=== PATIENT | female | born 1970 | race Two or more races ===

== ENCOUNTER 2023-07-12 12:46 | Outpatient (CLI) | payer BC ==
[2023-07-14 21:06] LABS: chla t Negative (Negative); neiss Negative (Negative)
== END 2023-07-12 13:00 | disposition home or self-care (01) ==
LOC: LAB 12:46
PROVIDERS: ATTEND General Practice
DX: A64 Unspecified sexually transmitted disease (principal); K76.9 Liver disease, unspecified

== ENCOUNTER 2023-07-19 12:31 | Outpatient (CLI) | payer BC ==
[2023-07-19 13:14] LABS: HEMATOCRIT 39.6 % (36.0-45.00); HEMOGLOBIN 12.9 g/dL (12.0-15.00); MEAN CELL VOLUME 96.3 fL (80.00-100.00); MEAN CORPUSCULAR HEMOGLOBIN 31.3 pg (27.00-32.0); MEAN CORPUSCULAR HGB CONC 32.5 g/dl (32.0-36.0); PLATELET COUNT 307 K/uL (150-450); RED BLOOD COUNT 4.11 M/uL (4.00-6.00); RED CELL DISTRIBUTION WIDTH 14.3 % (11.5-14.5)
== END 2023-07-19 12:32 | disposition home or self-care (01) ==
LOC: LAB 12:31
PROVIDERS: ATTEND General Practice
DX: D72.829 Elevated white blood cell count, unspecified (principal)